=== PATIENT | female | born 1995 | race Caucasian/White ===

== ENCOUNTER 2016-12-03 21:46 | Emergency (ER) | payer OTHER ==
[~2016-12-03] VITALS: Ht 162.6 cm; Wt 77.1 kg
[~2016-12-03 21:46] MED LIST: IMIQ1CRE TP
[2016-12-03 21:50] VITALS: BP 125/65
[2016-12-03] MEDS ORDERED: CYCL10TA2 PO (22:17)
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
== END 2016-12-03 22:24 | disposition home or self-care (01) ==
LOC: ER 21:46
DX: M54.6 Pain in thoracic spine (principal); V43.92XA Unspecified car occupant injured in collision with other type car in traffic accident, initial encounter; Y92.413 State road as the place of occurrence of the external cause; Y93.89 Activity, other specified; Y99.8 Other external cause status
CPT/HCPCS: 99283

== ENCOUNTER 2017-10-28 20:33 | Emergency (ER) | payer OTHER | END 2017-10-28 22:13 | disposition home or self-care (01) | LOC: ER 20:33 | DX: K08.89 Other specified disorders of teeth and supporting structures (principal); F12.10 Cannabis abuse, uncomplicated; Z88.1 Allergy status to other antibiotic agents | CPT/HCPCS: 99283 ==

== ENCOUNTER → 2017-12-08 15:39 | Emergency (ER) | payer OTHER | END | disposition home or self-care (01) | LOC: ER 15:39 | DX: L23.5 Allergic contact dermatitis due to other chemical products (principal); F12.10 Cannabis abuse, uncomplicated; F17.200 Nicotine dependence, unspecified, uncomplicated; Z88.1 Allergy status to other antibiotic agents | CPT/HCPCS: 99283 ==

== ENCOUNTER 2018-05-02 15:56 | Emergency (ER) | payer OTHER ==
[~2018-05-02] VITALS: Ht 165.1 cm; Wt 78.0 kg
[~2018-05-02 15:56] MED LIST changes: +CYCL10TA2 PO; +PENI500T PO; +TRAM-48 PO; +TRIA15CR3 TP
[2018-05-02 16:33] VITALS: BP 129/63
[2018-05-02] MEDS ORDERED: PRED20TA PO (16:54)
--- NOTE | 2018-05-02 16:55 | PHYS DOC ---
Past Medical History Past Medical History: STD Additional Past Medical Histor: genital warts Past Surgical History: No Surgical History, Tonsillectomy Alcohol Use: None Drug Use: Marijuana Adult General Chief Complaint Chief Complaint: SKIN RASH/ABSCESS HPI HPI Patient is a 23 year old female who presents to the emergency room with complaints of a rash on the right side of her neck, bilateral arms, left thigh and bilateral knees after weeding her yard Saturday night. Patient states that the area is very itchy at first it started on her neck and has since spread to the other areas on her body. She denies any fever, shortness of breath and congestion. She states she has had a dry cough for about the last week and half. Patient has tried applying topical hydrocortisone cream with little to no relief of her symptoms. Review of Systems Review of Systems Constitutional: Denies fever or chills [] Respiratory: Denies wheezing or shortness of breath [] Musculoskeletal: Denies back pain or joint pain [] Integument: Reports red itchy rash Neurologic: Denies headache, focal weakness or sensory changes [] All other systems were reviewed and found to be within normal limits, except as documented in this note. Allergies Allergies Allergies Coded Allergies Type Severity Reaction Last Updated Verified azithromycin Allergy Intermediate 10/28/17 Yes Physical Exam Physical Exam Constitutional: Well developed, well nourished, no acute distress, non-toxic appearance. [] HENT: Normocephalic, atraumatic, bilateral external ears normal, nose normal. [ ] Eyes: Normal Lungs & Thorax: Bilateral breath sounds clear to auscultation [] Skin: Warm, dry, erythemic rash with linear distribution noted to bilateral lower forearms consistent with poison kalani, also patient has rash noted to her neck and left thigh. Extremities: No tenderness, no cyanosis, no clubbing, ROM intact, no edema. [] Neurologic: Alert and oriented X 3, normal motor function, normal sensory function, no focal deficits noted. [] Psychologic: Affect normal, judgement normal, mood normal. [] Current Patient Data Vital Signs Vital Signs Date Time Temp Pulse Resp B/P (MAP) Pulse Ox O2 Delivery O2 Flow Rate FiO2 05/02/18 16:33 98.2 56 16 129/63 (85) 97 Room Air 98.2 EKG EKG [] Radiology/Procedures Radiology/Procedures [] Course & Med Decision Making Course & Med Decision Making Pertinent Labs and Imaging studies reviewed. (See chart for details) Poison kalani. 15 day taper of prednisone written. Recommend yruk-pej-cvvrdgq Benadryl and eiab-aqb-tkzjyul Benadryl itch relief cream or calamine lotion for relief of itching. May also apply a mixture of 50% water 50% vinegar to affected areas to help dry rash up. Patient verbalized an understanding of home care, medications, follow-up, and return to ED instructions and was in agreement with the plan of care. Dragon Disclaimer Dragon Disclaimer This electronic medical record was generated, in whole or in part, using a voice recognition dictation system. Departure Departure Impression: Primary Impression: Contact dermatitis Disposition: HOME, SELF-CARE Condition: STABLE Referrals: CARISSA SINGH MD (PCP) Patient Instructions: Contact Dermatitis, Qcto-te-Rgyl Additional Instructions: Fill prescription and use as directed. Recommend kbci-ade-gojibed Benadryl and xyru-gtd-wurcefl Benadryl itch relief cream or calamine lotion for relief of itching. May also apply a mixture of 50% water 50% vinegar to affected areas to help dry rash up. Follow up with your primary care doctor in 1-2 days, return to the ER if symptoms worsen. Scripts Prednisone (PREDNISONE) 20 Mg Tablet 1 TAB PO DAILY for 12 Days, #15 TAB 0 Refills take 2 tabs for 3 days, then 1.5 tabs for 3 days, then 1 tab for 3 days. then 0.5 tabs for 3 days. Prov: BESSIE MERAZ BILINGUAL SALES REPRESENTATIVE 05/02/18 Problem Qualifiers Primary Impression: Contact dermatitis Contact dermatitis type: allergic Contact dermatitis trigger: non-food plants Qualified Codes: L23.7 - Allergic contact dermatitis due to plants, except food BESSIE MERAZ BILINGUAL SALES REPRESENTATIVE May 02, 2018 16:55
== END 2018-05-02 17:55 | disposition home or self-care (01) ==
LOC: ER 15:56
DX: L23.7 Allergic contact dermatitis due to plants, except food (principal); Z88.1 Allergy status to other antibiotic agents
CPT/HCPCS: 99283

== ENCOUNTER 2018-08-10 22:20 | Emergency (ER) | payer OTHER ==
[~2018-08-10] VITALS: Ht 162.6 cm; Wt 82.6 kg
[~2018-08-10 22:20] MED LIST changes: +PRED20TA PO
[2018-08-10 22:25] VITALS: BP 134/79
[2018-08-10] MEDS ORDERED: SULF1TAB23 PO (22:58)
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
[2018-08-10] MEDS ORDERED: DIPHTH,PERTUSS(ACELL),TET TOX 0.5 ML DISP.SYRIN. VAX IM ONE (23:00)
== END 2018-08-10 23:10 | disposition home or self-care (01) ==
LOC: ER 22:20
DX: L03.811 Cellulitis of head [any part, except face] (principal); Z88.1 Allergy status to other antibiotic agents
CPT/HCPCS: 90471; 90715; 99283

== ENCOUNTER 2021-07-30 12:49 | Emergency (ER) | payer MEDICAID, OTHER ==
[~2021-07-30] VITALS: Ht 165.1 cm; Wt 89.8 kg
[~2021-07-30 12:49] MED LIST changes: +CYCL10TA19 PO; -CYCL10TA2 PO; +SULF1TAB23 PO
[2021-07-30 14:00] VITALS: BP 123/64
[2021-07-30] MEDS ORDERED: IBUP-1007 PO (14:22)
[2021-07-30] MEDS ORDERED: CYCL5TAB PO (14:22)
--- NOTE | 2021-07-30 14:23 | PHYS DOC ---
Past Medical History Past Medical History: STD Additional Past Medical Histor: genital warts Past Surgical History: Tonsillectomy Smoking Status: Current Some Day Smoker Alcohol Use: None Drug Use: Marijuana General Adult EDM: Chief Complaint: BACK PAIN OR INJURY HPI: HPI: Patient is a 26 year old female who presents with was at work today when she bent over to chart picker a couch cushion when she went to stand back up she felt a sharp pull in her left lower back. She denies any numbness or tingling, focal weakness, loss of bowel bladder. She has not taken anything for the pain. She rates it at a 9 out of 10. Denies urinary symptoms, fever, abnormal vaginal discharge, numbness or tingling, focal weakness. Review of Systems: Review of Systems: Constitutional: Denies fever or chills. [] Eyes: Denies change in visual acuity. [] HENT: Denies nasal congestion or sore throat. [] Respiratory: Denies cough or shortness of breath. [] Cardiovascular: Denies chest pain or edema. [] GI: Denies abdominal pain, nausea, vomiting, bloody stools or diarrhea. [] : Denies dysuria. [] Musculoskeletal: + Left lower back pain or denies joint pain. [] Integument: Denies rash. [] Neurologic: Denies headache, focal weakness or sensory changes. [] Endocrine: Denies polyuria or polydipsia. [] Lymphatic: Denies swollen glands. [] Psychiatric: Denies depression or anxiety. [] Heart Score: C/O Chest Pain: No Allergies: Allergies: Allergies Coded Allergies Type Severity Reaction Last Updated Verified azithromycin Adverse Reaction Intermediate "fever" 07/30/21 Yes Physical Exam: PE: Constitutional: Well developed, well nourished, no acute distress, non-toxic appearance. [] HENT: Normocephalic, atraumatic, bilateral external ears normal, oropharynx moist, no oral exudates, nose normal. [] Eyes: PERRLA, EOMI, conjunctiva normal, no discharge. [] Neck: Normal range of motion, no tenderness, supple, no stridor. [] Cardiovascular:Heart rate regular rhythm, no murmur [] Lungs & Thorax: Bilateral breath sounds clear to auscultation [] Abdomen: Bowel sounds normal, soft, no tenderness, no masses, no pulsatile masses. [] Skin: Warm, dry, no erythema, no rash. [] Back: No tenderness, no CVA tenderness. [] Extremities: No tenderness, no cyanosis, no clubbing, ROM intact, no edema. [] Neurologic: Alert and oriented X 3, normal motor function, normal sensory function, no focal deficits noted. [] Psychologic: Affect normal, judgement normal, mood normal. [] Normal physical exam Current Patient Data: Vital Signs: Vital Signs Date Time Temp Pulse Resp B/P (MAP) Pulse Ox O2 Delivery O2 Flow Rate FiO2 07/30/21 14:00 98.4 51 18 123/64 (83) Room Air 99.0 98.4 EKG: EKG: [] Radiology/Procedures: Radiology/Procedures: [] Course & Med Decision Making: Course & Med Decision Making Pertinent Labs and Imaging studies reviewed. (See chart for details) See HPI. Alert and oriented x4. Ambulatory steady gait. Speaks in full clear sentences. No saddle paresthesia. Full range of motion of all extremities. Sensation is intact. No focal bony spinal tenderness. No tenderness to her back. Patient states she is more comfortable standing. She states it is mostly painful when she goes from sitting to standing or having to bend and stand back up. [] Dragon Disclaimer: Dragon Disclaimer: This electronic medical record was generated, in whole or in part, using a voice recognition dictation system. Departure Departure Impression: Primary Impression: Back pain Qualified Codes: M54.50 - Low back pain, unspecified Disposition: HOME / SELF CARE / HOMELESS Condition: STABLE Referrals: CARISSA SINGH MD (PCP) Patient Instructions: Low Back Strain with Rehab-SportsMed Additional Instructions: Follow-up with a primary care provider if needed. Take medication as prescribed and with food. Remember muscle relaxers will make you sleepy so do not drive, work or drink alcohol while taking these. Scripts Ibuprofen (IBUPROFEN) 600 Mg Tablet 600 MG PO PRN Q6HRS PRN for INFLAMMATION, #25 TAB Prov: LAZARUS BONDS TUBE ROOM SUPERVISOR 07/30/21 Cyclobenzaprine Hcl (CYCLOBENZAPRINE HCL) 5 Mg Tablet 1 TAB PO TID, #10 TAB Prov: LAZARUS BONDS TUBE ROOM SUPERVISOR 07/30/21 LAZARUS BONDS APRN Jul 30, 2021 14:23
[2021-07-30] MEDS ORDERED: IBUPROFEN 200 MG TABLET. PO ONE (14:30)
== END 2021-07-30 14:58 | disposition home or self-care (01) ==
LOC: ER 12:49
DX: M54.50 Low back pain, unspecified (principal); F17.200 Nicotine dependence, unspecified, uncomplicated; Z88.1 Allergy status to other antibiotic agents
CPT/HCPCS: 99283